=== PATIENT | female | born 1940 | race African-American/Black ===

== ENCOUNTER 2021-11-11 05:59 | Day surgery (SDC) | payer MEDICARE, OTHER ==
[~2021-11-11] VITALS: Ht 152.5 cm; Wt 43.7 kg
[2021-11-11] VITALS (10 sets, daily range): BP systolic 115–158; BP diastolic 56–88; PULSE 60–75; TEMP 97.7
[2021-11-11] MEDS ORDERED: HCTZ 25MG TAB25 MG PO (06:56)
[2021-11-11] MEDS ORDERED: DRISDOL50000 IU PO (06:57)
[2021-11-11] MEDS ORDERED: PREMARIN 0.60.625 M1 PO (06:57)
[2021-11-11] MEDS ORDERED: ASPIRIN E.C. 8181 MG PO (06:58)
[2021-11-11] MEDS ORDERED: COD LIVER OIL1 CAP PO (06:59)
[2021-11-11] MEDS ORDERED: CATAPRES-TTS 30.3 MG TD (06:59)
[2021-11-11] MEDS ORDERED: LASIX 40MG TABL40 MG PO (06:59)
[2021-11-11] MEDS ORDERED: TOPROL XL 25MG25 MG PO (07:00)
[2021-11-11] MEDS ORDERED: ALDACTONE 25MG25 M1 PO (07:01)
[2021-11-11 07:16] LABS: PROTHROMBIN TIME 11.5 SECONDS (9.7-12.8)
[2021-11-11 07:19] LABS: HEMOGLOBIN 16.8 g/dl (12.5-16.0); MEAN CELL VOLUME 91 fl (80.0-100.0); MEAN CORPUSCULAR HEMOGLOBIN 29 pg (27-31); MEAN CORPUSCULAR HGB CONC 32 g/dl (33.0-37.0); MEAN PLATELET VOLUME 11.5 fl (7.4-10.4); PLATELET COUNT 174 K/mm3 (130-400); RED BLOOD COUNT 5.76 M/mm3 (4.10-5.30); REDCELL DISTRIBUTION WIDTH-CV 14.8 % (11.5-14.5)
[2021-11-11 07:27] LABS: CALCIUM 9.4 mg/dL (8.4-10.2); CREATININE, serum 1.54 mg/dL (0.57-1.11); HEMATOCRIT 52.2 % (37.0-47.0); POTASSIUM 4.4 mmol/L (3.5-4.5)
--- NOTE | 2021-11-11 08:02 | NUR ---
SEE MERGE FOR ALL MEDICATION ADMINISTRATION TIMES/DOSAGES AND INTRA/POST PROCEDURE SEDATION ASSESSMENTS.
--- NOTE | 2021-11-11 08:30 | NUR ---
pt recieved from laboratory chief via bed to eu 12, awake and alert, no c/o, radial band on with no signs of bleeding. call light in reach, sips on water
--- NOTE | 2021-11-11 09:15 | NUR ---
family member sitting with pt, pt has no c/o or requests at this time
--- NOTE | 2021-11-11 09:57 | NUR ---
Initial visit; Patient just underwent surgical procedure. Ana thanked for offering encouragement and prayer.
--- NOTE | 2021-11-11 10:30 | NUR ---
released 2cc of air from band at 1030, with immediate ooze from site, air replaced, no further bleeding, will con't to monitor. pt up to b/r to void with standby assist
--- NOTE | 2021-11-11 11:15 | NUR ---
con't releasing air to band 2cc at a time, then released with no bleeding or swelling, bandaid over site with coban for support. pt up to b/r again, iv d'cd intact. reviewed discharge inst. with pt on care of site and precautions, also on med changes with verbal understanding and family member in room, pt assisted in dressing and discharged at 1150 via w/c to car
== END 2021-11-11 11:50 | disposition home or self-care (01) ==
LOC: COL.CAR 05:59
PROVIDERS: Internal Medicine Cardiovascular Disease
DX: I49.5 Sick sinus syndrome (principal); I11.0 Hypertensive heart disease with heart failure; I50.20 Unspecified systolic (congestive) heart failure; E78.5 Hyperlipidemia, unspecified; Z95.0 Presence of cardiac pacemaker; Z79.82 Long term (current) use of aspirin; Z79.899 Other long term (current) drug therapy
CPT/HCPCS: C1887; J1644; J2250; J3010; J7030; Q9967